=== PATIENT | female | born 1945 | race Hispanic/Latino ===

== ENCOUNTER 2017-03-08 10:27 | Emergency (ER) | payer MEDICARE, OTHER ==
[2017-03-08 10:44] VITALS: PULSE 62; TEMP 97.6; BMI 33.5
--- NOTE | 2017-03-08 10:44 | ED PDOC ---
Arrival/HPI - General Historian: Patient <Mayank Scales - Last Filed: 03/08/17 13:55> <Romain Cage - Last Filed: 03/08/17 14:14> - General Chief Complaint: Chest Pain Time Seen by Provider: 03/08/17 10:31 - History of Present Illness Narrative History of Present Illness (Text): 03/08/17 11:22 71 F w/ PMHx specifically significant for past AMI s/p two stents no longer on anticoagulation, presents with a 12 hour duration of a 'pinching' in her substernal region midline. Pt states that the 'pinching' started last night with a severity of 2/10 and that it does not radiate anywhere, nor is it associated with sob or diaphoresis. Patient further states that nothing makes it better or worse. She has had an AMI in the past and she wanted to be careful , so she called her PMD, who told her to come to the ED. Patient denies F/ch/ sob/n/v/d, diaphoresis, calf swelling or pain, or any other symptoms. Patient denies having a PMHx of CHF. PMD: Dr. Hall from [facility] Cardio: Dr. Kearney PSHx: PMHx: Thyroid nodules, diverticulitis, AMI s/p 2 stents Allergies: NKDA Soc Hx: Former smoker; denies etoh, illicits Fam Hx: HLD 03/08/17 13:55 (Mayank Scales) Past Medical History - Tetanus Immunization Tetanus Immunization: Unknown - Cardiac Hx Pacemaker: No - Pulmonary Hx Respiratory Disorders: Yes Hx Chronic Obstructive Pulmonary Disease (COPD): Yes - Neurological Hx Paralysis: No - HEENT Hx HEENT Disorder: No - Renal Hx Renal Disorder: No - Endocrine/Metabolic Hx Endocrine Disorders: No - Hematological/Oncological Hx Blood Transfusions: No - Integumentary Hx Dermatological Disorder: No - Musculoskeletal/Rheumatological Hx Musculoskeletal Disorders: No - Gastrointestinal Hx Gastrointestinal Disorders: Yes Hx Diverticulitis: Yes HX Swallowing Problems: Yes Other/Comment: Weaver's esophagus - Genitourinary/Gynecological Hx Genitourinary Disorders: No - Psychiatric Hx Emotional Abuse: No Hx Physical Abuse: No Hx Substance Use: No - Surgical History Hx Cardiac Catheterization: Yes Hx Hysterectomy: Yes Other/Comment: cardiac catheterization - Anesthesia Hx Anesthesia Reactions: No Hx Malignant Hyperthermia: No - Suicidal Assessment Feels Threatened In Home Enviroment: No <John Cageo Neil - Last Filed: 03/08/17 14:14> Family/Social History Family/Social History: Diabetes, Hypertension <YordyMayank Barajas - Last Filed: 03/08/17 13:55> Smoking Status: Former Smoker Hx Alcohol Use: No Hx Substance Use: No <John Cageidalia Trejo - Last Filed: 03/08/17 14:14> Allergies/Home Meds <Mayank Scales - Last Filed: 03/08/17 13:55> <John Cageidalia Trejo - Last Filed: 03/08/17 14:14> Allergies/Adverse Reactions: Allergies No Known Allergies Allergy (Verified 09/13/16 16:57) Home Medications: Home Meds Medication Instructions Recorded Confirmed Clopidogrel [Plavix] 75 mg PO DAILY 01/22/16 03/08/17 Metoprolol Succinate [Toprol Xl] 25 mg PO DAILY 01/22/16 03/08/17 Aspirin [Ecotrin] 81 mg PO DAILY 09/14/16 03/08/17 Atorvastatin [Lipitor] 80 mg PO DAILY 10/15/16 03/08/17 Fluticasone/Vilanterol [Breo 1 inh IH DAILY 10/15/16 03/08/17 Ellipta 200-25 Mcg INH] Folic Acid 1 mg PO DAILY 10/15/16 03/08/17 Losartan [Cozaar] 25 mg PO DAILY 10/15/16 03/08/17 Pantoprazole [Protonix] 40 mg PO DAILY 10/15/16 03/08/17 Tiotropium [Spiriva] 18 mcg IH DAILY 10/15/16 03/08/17 Albuterol Sulfate [Proair Hfa] 1 puff IN PRN PRN 03/08/17 03/08/17 Review of Systems - Review of Systems Constitutional: Normal Eyes: Normal ENT: Normal Respiratory: Normal Cardiovascular: Other (Chest tightness) Gastrointestinal: Normal Genitourinary Female: Normal Musculoskeletal: Normal Skin: Normal Neurological: Normal Endocrine: Normal Hemo/Lymphatic: Normal Psychiatric: Normal <Mayank Scales Dillanjose antonio - Last Filed: 03/08/17 13:55> Physical Exam Vital Signs Reviewed: Yes Temperature: Afebrile Blood Pressure: Normal Pulse: Regular Respiratory Rate: Normal Appearance: Positive for: Well-Appearing, Non-Toxic, Comfortable Pain Distress: None Mental Status: Positive for: Alert and Oriented X 3 - Systems Exam Head: Present: Atraumatic, Normocephalic Pupils: Present: PERRL. No: Sluggish, Non-Reactive, Pinpoint Extroacular Muscles: Present: EOMI. No: Gaze Palsy, Entrapment Conjunctiva: Present: Normal. No: Injected, Icteric Ears: Present: Normal Mouth: Present: Moist Mucous Membranes Pharnyx: Present: Normal. No: ERYTHEMA, EXUDATE, TONSILS ENLARGED, Peritonsilar Swelling, Uvular Deviation, Muffled/Hoarse Voice, Strider, Soft Palate/Uvular Edema, Other Nose (External): Present: Atraumatic Nose (Internal): Present: Normal Inspection. No: Rhinorrhea Neck: Present: Normal Range of Motion. No: MIDLINE TENDERNESS Respiratory/Chest: Present: Clear to Auscultation, Good Air Exchange. No: Wheezes, Rales, Rhonchi Cardiovascular: Present: Regular Rate and Rhythm, Normal S1, S2. No: Murmurs, Irregular Rhythm, Tachycardic Abdomen: Present: Normal Bowel Sounds. No: Tenderness, Distention, Peritoneal Signs Back: Present: Normal Inspection. No: CVA Tenderness Upper Extremity: Present: Normal Inspection, Normal ROM. No: Cyanosis, Edema Lower Extremity: Present: Normal Inspection, NORMAL PULSES. No: Edema, CALF TENDERNESS Neurological: Present: GCS=15, CN II-XII Intact, Speech Normal Skin: Present: Warm, Normal Color Lymphatic: No: Cervical Adenopathy, Axillary Adenopathy, Inguinal Adenopathy Psychiatric: Present: Alert, Oriented x 3, Normal Insight, Normal Concentration , Normal Affect <Mayank Scales - Last Filed: 03/08/17 13:55> Medical Decision Making <Mayank Scales - Last Filed: 03/08/17 13:55> <Romain Cage - Last Filed: 03/08/17 14:14> ED Course and Treatment: Pt assessed 03/08/17 10:45 Impression: 71 F w/ pmhx specifically significant for past AMI s/p 2 stents off of anticoagulation presents with chest "pinching" and discomfort. ACS VS Musculoskeletal VS GERD Plan: - ASA 325, O2 on NC 1L - Troponins - CBC, BMP - Reassess and consult with Dr. Kearney Pt reassessed 03/08/17 12:13 Troponins reviewed, < .01 EKG: Left anterior fascicular block, no change from previous EKG on 09/13/16 CBC, BMP reviewed, no lab abnormalities ASA given Pt reassessed 03/08/17 13:37 D/w Dr. Kearney. Patient can be discharged, will follow up with him outpatient. Pending second troponin Pt reassessed 03/08/17 13:51 Second troponin negative - patient discharged home (Mayank Scales) 03/08/17 10:43 EKG: Ordered, reviewed, and independently interpreted the EKG. Rate : 60 BPM Rhythm : NSR Interpretation : Left interior ventricular block, LAFB Comparison : No change from previous EKG from 09/13/2016. 03/08/17 14:12 71 yo female presents with chest pain. I agree with resident's history and physical, assessment and plan. Patient's hand tier Dr. Schroeder came to the ED to evaluate patient. Agrees with plan to discharge patient home with f/u. Troponin negative x 2. Patient does not have pain anymore. (Romain Cage) - Lab Interpretations Lab Results: 03/08/17 11:20 03/08/17 11:20 Lab Results 03/08/17 13:10: Troponin I < 0.01 03/08/17 11:20: Sodium 142, Potassium 4.7, Chloride 107, Carbon Dioxide 28, Anion Gap 12, BUN 15, Creatinine 0.6, Est GFR ( Amer) > 60, Est GFR (Non- Af Amer) > 60, Random Glucose 114 H, Calcium 9.1, Troponin I < 0.01 D 03/08/17 11:20: WBC 7.9, RBC 4.88, Hgb 13.6, Hct 40.9, MCV 83.8, MCH 27.9, MCHC 33.3, RDW 14.5, Plt Count 168, MPV 9.3, Gran % 68.6 H, Lymph % (Auto) 22.1, Wilkin % (Auto) 6.7 H, Eos % (Auto) 2.2, Baso % (Auto) 0.4, Gran # 5.40, Lymph # 1.7, Wilkin # 0.5, Eos # 0.2, Baso # 0.03 - RAD Interpretation Radiology Orders: 03/08/17 11:08 CHEST PORTABLE [RAD] Stat - Medication Orders Current Medication Orders: Discontinued Medications Aspirin (Aspirin Chewable) 81 mg PO STAT STA Stop: 03/08/17 11:05 Aspirin (Aspirin Chewable) 325 mg PO STAT STA Stop: 03/08/17 11:05 Last Admin: 03/08/17 11:19 Dose: 325 mg - PA / UNIT AIDE / Resident Statement /DO has reviewed & agrees with the documentation as recorded. / has examined the patient and agrees with the treatment plan. <Romain Cage - Last Filed: 03/08/17 14:14> Disposition/Present on Arrival - Present on Arrival Any Indicators Present on Arrival: No - Disposition Have Diagnosis and Disposition been Completed?: Yes Disposition Time: 13:50 <Mayank Scales - Last Filed: 03/08/17 13:55> - Present on Arrival History of DVT/PE: No History of Uncontrolled Diabetes: No Urinary Catheter: No History Surgical Site Infection Following: None - Disposition Patient Plan: Discharge <Romain Cage - Last Filed: 03/08/17 14:14> - Disposition Diagnosis: Chest pain not due to acute coronary syndrome Disposition: HOME/ ROUTINE Condition: IMPROVED Discharge Instructions (ExitCare): Chest Pain (ED) Additional Instructions: Ms. Min, thank you for letting us take care of you today. Your providers were Dr. Cage and Dr. Scales. You were treated for chest discomfort. The emergency medical care you received today was directed at your acute symptoms. If you were prescribed any medication, please fill it and take as directed. It may take several days for your symptoms to resolve. Return to the Emergency Department if your symptoms worsen, do not improve, or if you have any other problems. Please contact your doctor or call one of the physicians/clinics you have been referred to that are listed on the Patient Visit Information form that is included in your discharge packet. Bring any paperwork you were given at discharge with you along with any medications you are taking to your follow up visit. Our treatment cannot replace ongoing medical care by a primary care provider (PCP) outside of the emergency department. Thank you for allowing the [facility] team to be part of your care today. If you had an X-Ray or CT scan: A Radiologist will review the ED reading if any change in treatment is needed we will contact you. If you had a blood, urine, or wound culture: It will take several days for the results, if any change in treatment is needed we will contact you. If you had an STI test: It will take 48 hours for the results. Please call after 1 week if you have not heard back. Referrals: PCP,NO [Primary Care Provider] - Follow up with primary Forms: [employer] (Greek)
[2017-03-08 11:30] LABS: BASO # 0.03 K/mm3 (0.0-2.0); BASO % 0.4 % (0.0-3.0); EOS # 0.2 (0.0-0.7); EOS % 2.2 % (1.5-5.0); GRAN # 5.4 (1.4-6.5); GRAN % 68.6 % (50.0-68.0); HEMATOCRIT 40.9 % (36.0-48.0); LYMPH # 1.7 (1.2-3.4); LYMPH % 22.1 % (22.0-35.0); MEAN CELL VOLUME 83.8 fl (80.0-105.0); MEAN CORPUSCULAR HEMOGLOBIN 27.9 pg (25.0-35.0); MEAN CORPUSCULAR HGB CONC 33.3 g/dl (31.0-37.0); MEAN PLATELET VOLUME 9.3 fl (7.0-11.0); MONO # 0.5 (0.1-0.6); MONO % 6.7 % (1.0-6.0); RED CELL DISTRIBUTION WIDTH 14.5 % (11.5-14.5); WHITE BLOOD COUNT 7.9 10^3/ul (4.5-11.0)
[2017-03-08 11:39] LABS: BLOOD UREA NITROGEN 15 mg/dL (7-21); CALCIUM 9.1 mg/dL (8.4-10.5); CARBON DIOXIDE 28 mmol/L (21-33); CHLORIDE 107 mmol/L (98-107); GFR AFRICAN-AMERICAN > 60; GLUCOSE,RANDOM 114 mg/dL (70-110); POTASSIUM 4.7 mmol/L (3.6-5.0); SODIUM 142 mmol/L (132-148)
[2017-03-08 11:53] LABS: TROPONIN I < 0.01 ng/mL
--- NOTE | 2017-03-08 12:38 | RAD ---
HISTORY: chest discomfort COMPARISON: 01/20/2016 FINDINGS: LUNGS: No active pulmonary disease. PLEURA: No significant pleural effusion identified, no pneumothorax apparent. CARDIOVASCULAR: Normal. OSSEOUS STRUCTURES: No significant abnormalities. VISUALIZED UPPER ABDOMEN: Normal. OTHER FINDINGS: None. IMPRESSION: No active disease.
[2017-03-08 13:02] VITALS: BP 127/52; RESP 16; O2SAT 98
--- NOTE | 2017-03-08 17:53 | CARD ---
APPROVED REPORT EKG Measurement Heart [id number] <Conclusion> Normal sinus rhythm Left anterior fascicular block Nonspecific ST abnormality Abnormal ECG
== END 2017-03-08 13:52 | disposition home or self-care (01) ==
LOC: ED 10:27
DX: R07.9 Chest pain, unspecified (principal); I25.2 Old myocardial infarction; Z98.61 Coronary angioplasty status; Z87.891 Personal history of nicotine dependence

== ENCOUNTER 2017-11-22 14:53 | Emergency (ER) | payer MEDICARE, OTHER ==
[2017-11-22 14:54] VITALS: BMI 33.5
[2017-11-22 15:48] VITALS: TEMP 98.3
--- NOTE | 2017-11-22 16:56 | ED PDOC ---
Arrival/HPI - General Chief Complaint: ENT Problem Time Seen by Provider: 11/22/17 15:09 - History of Present Illness Narrative History of Present Illness (Text): 11/22/17 16:44 Patient is a 72 year old female with a past medical history of CAD with stents, diverticulitis, thyroid nodules, COPD, hypertension, and hyperlipidemia who presents to the Emergency department complaining of "TMJ". I explained to the patient the the TMJ is a joint between her mandible and temporal bone and when questioned further, the patient described pain on the left side of her face extending from the left side of her nose under her eye and around towards her hairline. Patient says the pain is the worst under her eye overlying the orbital bone. She describes this pain as sharp, 10/10 pain that is worse than when she gave to her children. Patient says she has had this pain for years and used to take "buffin" for it but when she had her heart attack she was told to stop. Patient says she now takes tylenol 500 mg 3 tabs at a time and pain relief only lasts 2.5 hours. Patient says it is made worse by breathing , wind, touching it, and opening/closing her mouth, although she does not notice increased pain with chewing. Patient admits to associated watering of her left eye and "gum swelling" which she describes as her dentures feeling tight. She also notices occasional headache radiating towards the back of her head when she gets the pain. She denies fevers, chills, changes in vision, chest pain, shortness of breath, abdominal pain, changes in bowel or urinary habits. Past Medical History - Patient History Narrative Patient History: see HPI - Tetanus Immunization Tetanus Immunization: Unknown - Cardiac Hx Cardiac Disorders: Yes - Pulmonary Hx Respiratory Disorders: Yes Hx Chronic Obstructive Pulmonary Disease (COPD): Yes - Neurological Hx Neurological Disorder: No - HEENT Hx HEENT Disorder: Yes Other/Comment: TMJ - Renal Hx Renal Disorder: No - Endocrine/Metabolic Hx Endocrine Disorders: No - Hematological/Oncological Hx Blood Disorders: No - Integumentary Hx Dermatological Disorder: No - Musculoskeletal/Rheumatological Hx Musculoskeletal Disorders: No - Gastrointestinal Hx Gastrointestinal Disorders: Yes Hx Diverticulitis: Yes HX Swallowing Problems: Yes Other/Comment: Weaver's esophagus - Genitourinary/Gynecological Hx Genitourinary Disorders: No - Psychiatric Hx Psychophysiologic Disorder: No Hx Substance Use: No - Surgical History Hx Cardiac Catheterization: Yes Hx Coronary Stent: Yes Hx Hysterectomy: Yes Other/Comment: cardiac catheterization - Anesthesia Hx Anesthesia Reactions: No Hx Malignant Hyperthermia: No - Suicidal Assessment Feels Threatened In Home Enviroment: No Family/Social History Family/Social History: Diabetes (father) Smoking Status: Former Smoker Hx Alcohol Use: No Hx Substance Use: No Allergies/Home Meds Allergies/Adverse Reactions: Allergies No Known Allergies Allergy (Verified 11/22/17 15:39) Home Medications: Home Meds Medication Instructions Recorded Confirmed Clopidogrel [Plavix] 75 mg PO DAILY 01/22/16 11/22/17 Metoprolol Succinate [Toprol Xl] 25 mg PO DAILY 01/22/16 11/22/17 Aspirin [Ecotrin] 81 mg PO DAILY 09/14/16 11/22/17 Folic Acid 1 mg PO DAILY 10/15/16 11/22/17 Losartan [Cozaar] 25 mg PO DAILY 10/15/16 11/22/17 Pantoprazole [Protonix] 40 mg PO DAILY 10/15/16 11/22/17 Tiotropium [Spiriva] 18 mcg IH DAILY 10/15/16 11/22/17 Albuterol Sulfate [Proair Hfa] 1 puff IN PRN PRN 03/08/17 11/22/17 Review of Systems - Physician Review All systems were reviewed & negative as marked: Yes - Review of Systems Constitutional: Normal. absent: Fatigue, Fevers, Night Sweats Eyes: Eye Pain (below eye overlying the orbit), Other (watering of left eye). absent: Vision Changes, Photophobia ENT: absent: Hearing Changes, Tinnitus, TMJ Pain, Sore Throat, Rhinorrhea, Sinus Congestion Respiratory: Normal. absent: SOB, Cough, Wheezing Cardiovascular: Normal. absent: Chest Pain, Palpitations, Edema, Calf Pain Gastrointestinal: Normal. absent: Abdominal Pain, Constipation, Diarrhea, Nausea, Vomiting Musculoskeletal: absent: Back Pain, Neck Pain Neurological: Headache (occipital). absent: Dizziness, Speech Changes, Facial Droop Physical Exam Vital Signs Temp Pulse Resp BP Pulse Ox 11/22/17 15:42 98.3 F 71 16 147/80 93 L Temperature: Afebrile Blood Pressure: Normal Pulse: Regular Respiratory Rate: Normal Appearance: Positive for: Well-Appearing, Non-Toxic, Uncomfortable Pain Distress: Severe Mental Status: Positive for: Alert and Oriented X 3 - Systems Exam Head: Present: Atraumatic, Normocephalic, Tenderness (under the left eye along the orbit ). No: Contusion, Swelling, Ecchymosis, Abrasion, Laceration Pupils: Present: PERRL Extroacular Muscles: Present: EOMI Conjunctiva: Present: Normal Ears: Present: Normal Mouth: Present: Moist Mucous Membranes, Normal Lips, Normal Tounge Pharnyx: Present: Normal Nose (External): Present: Atraumatic Nose (Internal): Present: Normal Inspection Neck: Present: Normal Range of Motion Respiratory/Chest: Present: Clear to Auscultation, Good Air Exchange. No: Respiratory Distress, Accessory Muscle Use Cardiovascular: Present: Regular Rate and Rhythm, Normal S1, S2. No: Murmurs Abdomen: Present: Normal Bowel Sounds. No: Tenderness, Distention, Peritoneal Signs Upper Extremity: Present: Normal Inspection Lower Extremity: Present: Normal Inspection Neurological: Present: GCS=15, Speech Normal Skin: Present: Warm, Dry, Normal Color. No: Rashes Psychiatric: Present: Alert, Oriented x 3, Normal Insight, Normal Concentration Medical Decision Making ED Course and Treatment: 11/22/17 17:17 Suspected trigeminal neuralgia - will give dose of carbamazepine and watch for improvement 11/22/17 18:00 Pain resolved with carbamazepine - will send home with short term prescription and have her follow up with her PCP - Medication Orders Current Medication Orders: Discontinued Medications Carbamazepine (Tegretol) 200 mg PO STAT STA PRN Reason: Protocol Stop: 11/22/17 16:41 Last Admin: 11/22/17 17:16 Dose: 200 mg - PA / EXTRUDER OPERATOR / Resident Statement / has reviewed & agrees with the documentation as recorded. / has examined the patient and agrees with the treatment plan. Disposition/Present on Arrival - Present on Arrival Any Indicators Present on Arrival: No History of DVT/PE: No History of Uncontrolled Diabetes: No Urinary Catheter: No History of Decub. Ulcer: No History Surgical Site Infection Following: None - Disposition Have Diagnosis and Disposition been Completed?: Yes Diagnosis: Trigeminal neuralgia of left side of face, Facial pain Disposition: HOME/ ROUTINE Disposition Time: 18:01 Condition: STABLE Discharge Instructions (ExitCare): Trigeminal Neuralgia, Cluster Headache Additional Instructions: Please follow up with you primary care physician within 1-2 days for further coordination of your care. You make take carbamazepine 1 tablet by mouth every 12 hours ONLY as needed for facial pain. Please return to the Emergency department if you experience any new or worsening symptoms. Prescriptions: Carbamazepine 200 mg PO BID PRN #2 tablet PRN Reason: Facial Pain Referrals: Liseth Raza, [Primary Care Provider] - Follow up with primary Forms: [employer] (Thai)
[2017-11-22 20:10] VITALS: BP 142/78; PULSE 68; RESP 17; O2SAT 95
== END 2017-11-22 18:20 | disposition home or self-care (01) ==
LOC: ED 14:53
DX: G50.0 Trigeminal neuralgia (principal); R51 Headache; E78.5 Hyperlipidemia, unspecified; I10 Essential (primary) hypertension; I25.10 Atherosclerotic heart disease of native coronary artery without angina pectoris; J44.9 Chronic obstructive pulmonary disease, unspecified; Z87.891 Personal history of nicotine dependence

== ENCOUNTER 2018-11-06 08:41 | Outpatient (CLI) | payer MEDICARE | END 2018-11-06 08:42 | disposition home or self-care (01) | LOC: RAD 08:41 ==